=== PATIENT | female | born 1935 | race Caucasian/White ===

== ENCOUNTER → 2016-06-27 | Outpatient (CLI) | payer OTHER | LOC: RAD 13:42 | DX: J18.9 Pneumonia, unspecified organism (principal); R06.00 Dyspnea, unspecified; J81.1 Chronic pulmonary edema; J98.4 Other disorders of lung ==

== ENCOUNTER 2016-07-24 15:51 | Inpatient (IN) | payer OTHER ==
[~2016-07-24] VITALS: Ht 167.6 cm; Wt 68.3 kg
--- NOTE | ~2016-07-24 | EKG ---
[address] [address] ELECTROCARDIOGRAM REPORT Name: [place], [place] Room #: 215-P ADM IN M.R.#: [id number] Admission: 07/24/16 Attend Phys: Mary Jones MD Discharge: Date of : 35 Report #: [id number] THIS REPORT FOR: //name// [facility] ED Test Date: 2016-07-24 Test Time: 16:53:22 Pat Name: [facility] Department: Room: 215 Gender: F [employer] Service Man: mara : 1935 Requested By: Luc Pitt Order Number: [id number] MD: Robi Mccauley Measurements Intervals [place] Rate: 73 P: 64 MN: 138 QRS: 0 QRSD: 88 T: 44 QT: 467 QTc: 515 Interpretive Statements Sinus rhythm Nonspecific ST and T wave abnormality Prolonged QT interval No previous ECG available for comparison Electronically Signed On 07-25-2016 9:22:47 CDT by Robi Mccauley [email or web address] <ELECTRONICALLY SIGNED> By: Robi Mccauley MD, [facility] 07/25/16 0922 1653 1653 Robi Mccauley MD, FACC /EPI
--- NOTE | ~2016-07-24 | 2DMMODE ---
[facility] [address] [place] [address] 2 D/M-MODE ECHOCARDIOGRAM Name: [place] Room #: 215-P ADM IN M.R.#: [id number] Admission: 07/24/16 Attend Phys: Mary Jones Discharge: Date of : 35 Date of Service: 07/25/16 1428 Report #: [id number] THIS REPORT FOR: //name// ADDENDUM APPROVED REPORT Study performed: 07/25/2016 09:57:04 EXAM: Comprehensive 2D, Doppler, and color-flow Echocardiogram Patient Location: Echo lab Room #: 215 Blood Pressure: 125/65 mmHg HR: 89 bpm Other Information Study Quality: Good Indications Congestive Heart Failure Dyspnea Hypertension/HDD Echo Enhancing Agent Indication: Rule out Shunt Agent/Amount Used: Agitated Saline 7 cc 2D Dimensions RVDd: 45.23 mm LVEF(%): 59.07 (>50%) IVSd: 9.51 (7-11mm) LVOT Diam: 20.06 (18-24mm) LVDd: 44.94 mm PWd: 9.75 (7-11mm) Ascending Aorta: 28.12 mm LVDs: 30.93 (25-40mm) IVC: 22.00 mm Aortic Root: 27.73 mm Nunez's LVEF: 59.07 % Volumes Left Atrial Volume (Systole) Single Plane 4CH: 53.44 mL Single Plane 2CH: 49.02 mL LA ESV Index: 30.00 mL/m2 Aortic Valve AoV Peak Wander.: 2.06 m/s AO Peak Gr.: 16.93 mmHg LV Max P.69 mmHg LV Max: 1.08 m/s [facility] [address] [place] [address] 2 D/M-MODE ECHOCARDIOGRAM Name: [place], [place] Room #: [address] [place] [address] IN ..#: [id number] Admission: 07/24/16 Attend Phys: Mary Jones Discharge: Date of : 35 Date of Service: 07/25/16 1428 Report #: [id number] Mitral Valve E/A Ratio: 0.8 MV Decel. Time: 215.10 ms MV E Max Wander.: 0.83 m/s MV A Wander.: 1.04 m/s MV PHT: 62.38 ms Pulmonary Valve PV Peak Wandre.: 0.97 m/s PV Peak Gr.: 3.78 mmHg Pulmonary Vein P Vein S: 39.0 m/s P Vein D: 24.8 m/s P Vein A Dur.: 28.2 m/s PVa Duration: 111 Tricuspid Valve TR Peak Wander.: 4.25 m/s RAP Estimate: 10.00 mmHg TR Peak Gr.: 72.35 mmHg Left Ventricle The left ventricle is normal size. There is normal LV segmental wall motion. There is normal left ventricular wall thickness. The left ventricular systolic function is normal. The left ventricular ejection fraction is within the normal range. LVEF 60%. Grade I - abnormal relaxation pattern. Right Ventricle Right ventricle is dilated. The right ventricular systolic function is normal. Atria The left atrium is upper limits of normal size. Right atrium is dilated. Aortic Valve Aortic valve is mildly calcified. Trace aortic regurgitation. There is no aortic valvular stenosis. Mitral Valve Mild mitral annular calcification Mild mitral regurgitation. No evidence of mitral valve stenosis. There is mild mitral valve prolapse. Tricuspid Valve The tricuspid valve is normal in structure. There is moderate to [facility] [address] [place] [address] 2 D/M-MODE ECHOCARDIOGRAM Name: [place], [place] Room #: 215-P ADM IN M.R.#: [id number] Admission: 07/24/16 Attend Phys: Mary Jones Discharge: Date of : 35 Date of Service: 07/25/16 1428 Report #: [id number] severe tricuspid regurgitation. The right atrial pressure is estimated at 10 mmHg. There is severe pulmonary hypertension. Great Vessels The aortic root is normal in size. IVC is dilated and collapses >50% with inspiration. Pericardium There is no pericardial effusion. <Conclusion> The left ventricular systolic function is normal. There is normal LV segmental wall motion. LVEF 60%. Grade I diastolic dysfunction. Right ventricle is dilated. Right atrium is dilated. Aortic valve is mildly calcified. Trace aortic regurgitation, no stenosis. Mild mitral annular calcification. Mild mitral regurgitation. There is severe pulmonary hypertension. Pulmonary artery pressure of 70mmHg There is no pericardial effusion. No shunting by contrast bubble injection <ELECTRONICALLY SIGNED> By: Robi Mccauley MD, FACC 07/25/16 1428 1428 1428 Robi Mccauley MD, FACC /INF
--- NOTE | ~2016-07-24 | HC ---
[facility] [place] [address] [place] [address] CONSULTATION Name: [place], [place] Room #: 215-P [facility] IN M.R.#: [id number] Admission: 07/24/16 Attend Phys: Mary Jones MD Discharge: 07/27/16 Date of : 35 Report #: [id number] THIS REPORT FOR: //name// CC: JADON Jones DATE OF SERVICE: 07/25/2016 REASON FOR CONSULTATION: Exacerbation of obstructive lung disease. IMPRESSION: 1. Exacerbation of obstructive lung disease. 2. Right heart failure. 3. Pulmonary hypertension. 4. Coronary artery disease. 5. Hypertension. PLAN: Corticosteroids, antibiotics. ID will see as she has dental caries and have had antibiotics in the past. DVT and ulcer prophylaxis. May need further pulmonary hypertension evaluation; however, because of her severity of COPD, I feel this is the most likely cause and has had therapy in the past, which was not beneficial. HISTORY OF PRESENT ILLNESS: A very pleasant 80-year-old female comes in with progressive shortness of breath and inability to breath. No hemoptysis or hematemesis. MEDICATIONS: Include Coreg, lisinopril, sertraline, furosemide, Plavix, aspirin, pravastatin, Synthroid and Centrum silver. PAST MEDICAL HISTORY: Includes pulmonary hypertension, coronary artery disease, mitral valve prolapse, emphysema and SC. PAST SURGICAL HISTORY: . FAMILY HISTORY: Heart disease and hypertension. SOCIAL HISTORY: Positive tobacco for 50 years and quit greater than 1 year ago. REVIEW OF SYSTEMS: No fever, chills or night sweats. Positive shortness of breath, chest congestion and dyspnea at rest and with exertion. No dysuria. Positive back pain. PHYSICAL EXAMINATION: VITAL SIGNS: On exam, temperature 98.4, pulse 87, respirations 16 and BP 116/57. [facility] [address] [place] [address] CONSULTATION Name: [place], [place] Room #: 215-P [facility] IN M.R.#: [id number] Admission: 07/24/16 Attend Phys: Mary Jones MD Discharge: 07/27/16 Date of : 35 Report #: [id number] EYES: Negative icterus. NECK: Negative JVD. LUNGS: Showed decreased breath sounds, crackles and end-expiratory wheeze. HEART: Regular. EXTREMITIES: Showed no calf tenderness. NEUROLOGIC: Alert, oriented and follows. LABS AND X-RAYS: Reviewed. <ELECTRONICALLY SIGNED> By: Sharlene Tripp MD 07/30/16 0548 1646 0023 Sharlene Tripp MD /nt
--- NOTE | ~2016-07-24 | HC ---
[facility] [address] [place] [address] CONSULTATION Name: [place], [place] Room #: 215-P ADM IN M.R.#: [id number] Admission: 07/24/16 Attend Phys: Mary Jones MD Discharge: Date of : 35 Report #: [id number] THIS REPORT FOR: //name// CC: JADON Jones REASON FOR CONSULTATION: I was asked to evaluate concerning respiratory compromise and dental abscess. HISTORY OF PRESENT ILLNESS: The patient is an 80-year-old who presented to the Emergency Room with progressive shortness of breath. She has underlying pulmonary hypertension, COPD, coronary artery disease. She is typically on 4 liters of oxygen per nasal cannula. She does increase to 6 liters. Now on over 8 liters and still having issues with hypoxia. Minimal cough. No chest pain. Denied any previous nausea, vomiting or diarrhea. No recent travel, although she has moved here to the [place] within the last 6 months. Originally had been residing in [place]. Over the last several months, she has been dealing with dental abscesses. She is in the midst of further dental work. Several weeks ago oral antibiotics for such. Pain in her mouth has improved. She does have dental prostheses. Has had tuberculosis exposure to her and did receive preventative therapy many years ago. ALLERGIES: None known. MEDICATIONS: As noted on her MAR, now on Solu-Medrol. PAST MEDICAL HISTORY, FAMILY HISTORY AND SOCIAL HISTORY: Otherwise unchanged from her history and physical, which was reviewed. She is up to date on influenza vaccination and pneumococcal vaccine. She is a past smoker. REVIEW OF SYSTEMS: Negative other than what had been described above. PHYSICAL EXAMINATION: VITAL SIGNS: She is afebrile, hemodynamically stable. She was sitting up in her bed, eating her lunch. She is on 9 liters of oxygen per nasal cannula. GENERAL: She is alert and cooperative. She was in no distress. She had mild obesity. SKIN: Unremarkable. LYMPHATIC: Unremarkable. HEENT: Notable for several partial dentures. Had some mild tenderness to the left anterior mandibular teeth. There was no submandibular swelling or submental swelling. Jaw appeared to be intact. NECK: Supple. [facility] [address] [place] [address] CONSULTATION Name: [place], [place] Room #: 215-P ADM IN M.R.#: [id number] Admission: 07/24/16 Attend Phys: Mary Jones MD Discharge: Date of : 35 Report #: [id number] LUNGS: Crackles in the bases bilaterally. HEART: Regular, without murmur. ABDOMEN: Soft, nontender, no hepatosplenomegaly or mass. EXTREMITIES: No peripheral edema. LABORATORY STUDIES: Sodium 139, potassium 3.5, bicarbonate 25, creatinine 1.5. Liver function test normal. Hemoglobin 11, white count 7.3, platelet count 336,000. BNP 5023. V/Q scan low probability. Blood cultures are negative today. Chest x-ray showed some evidence of edema. IMPRESSION: An 80-year-old with exacerbation of chronic obstructive pulmonary disease, pulmonary hypertension, mild congestive heart failure with dental abscesses and chronic dental disease. PLAN: Would recommend continuing antibiotic coverage with Unasyn. Will check viral respiratory panel, urine antigens and obtain dental x-rays. <ELECTRONICALLY SIGNED> By: Bimal Galicia MD 07/26/16 1024 1349 07 Bimal Galicia MD /nt
--- NOTE | ~2016-07-24 | HC ---
[facility] [place] [address] CONSULTATION Name: [place], [place] Room #: 215-P ADM IN M.R.#: [id number] Admission: 07/24/16 Attend Phys: Mary Jones MD Discharge: Date of : 35 Report #: [id number] THIS REPORT FOR: //name// CC: JADON Jones CARDIOLOGY CONSULTATION REASON FOR CONSULTATION: Shortness of breath. HISTORY OF PRESENT ILLNESS: The patient is an 80-year-old female with a history of pulmonary hypertension, tobacco abuse, possible COPD as well as coronary artery disease, status post stents times 3. Apparently, she was seen at the doctor's office yesterday and her O2 saturations were in the 80s despite 4 liters of nasal cannula. She was brought to the emergency room for further evaluation. She denies any chest pain or chest tightness. She reports that she almost has yearly nuclear stress test. She also reports she has had about 4 cardiac catheterizations in the past. She denies any PND or orthopnea. She does have exertional dyspnea, which has worsened over the past 2-3 weeks. REVIEW OF SYSTEMS: GENERAL: No fevers or chills. HEENT: No sore throat. CARDIOVASCULAR: As above. PULMONARY: No productive cough. GASTROINTESTINAL: No nausea or vomiting. GENITOURINARY: No dysuria. MUSCULOSKELETAL: No myalgias or arthralgias. ENDOCRINE: No heat or cold intolerance. NEUROLOGIC: No weakness or stroke-like symptoms. PAST MEDICAL HISTORY: 1. Coronary artery disease, status post multiple stents. 2. Possible COPD. 3. Hypertension. 4. Pulmonary hypertension. SOCIAL HISTORY: She was a heavy smoker in the past. FAMILY HISTORY: Noncontributory. ALLERGIES: No known drug allergies. CURRENT MEDICATIONS: Include Synthroid, Lasix, Plavix, Coreg and omeprazole. PHYSICAL EXAMINATION: VITAL SIGNS: Temperature is 36.4, pulse 88, respiratory rate 18, blood pressure [facility] [address] [place] [address] CONSULTATION Name: [place], [place] Room #: 215 ADM IN M.R.#: [id number] Admission: 07/24/16 Attend Phys: Mary Jones MD Discharge: Date of : 35 Report #: [id number] 125/61 and sats are 91% on oxygen. GENERAL: On physical, in general, she is in no acute distress. HEENT: Oropharynx is clear. Sclerae are anicteric. NECK: Supple, with no thyromegaly. HEART: Regular rate and rhythm, with no murmurs, rubs or gallops. She does not have appreciable elevated JVD. LUNGS: Clear bilaterally. ABDOMEN: Soft, nontender and nondistended, with no hepatosplenomegaly. EXTREMITIES: There is no clubbing, cyanosis or edema. NEUROLOGIC: Cranial nerves 2-12 are intact. LABORATORY DATA: Her V/Q scan was low probability. Her EKG, I personally visualized, shows normal sinus rhythm with no ischemic changes. Her chest x-ray was read as possible pulmonary edema. White count 7.3, hemoglobin 11 and platelets 336,000. Blood gas, pH of 7.4, pCO2 of 34 and pO2 of 58. Coags: INR is 1.1. Chemistries: Sodium 139, potassium 3.5, BUN 17 and creatinine has increased from 1.2 up to 1.5. Her proBNP was 5023 and now it has increased to 6939. SUMMARY: In summary, the patient is an 80-year-old with a history of possible COPD, pulmonary hypertension as well as coronary artery disease, presenting with worsening shortness of breath. The etiology of this is not entirely clear. There may be a component of pulmonary involvement including her pulmonary hypertension. It is unclear if she has any LV dysfunction which may be systolic or diastolic in nature. To further evaluate this, I would like her to undergo an echocardiogram. We will make no medication changes at this time. Apparently, there have been some fluctuations in her blood pressure with some low readings in the past and her medications have been recently decreased in dose. We will make adjustments as necessary. We will continue to follow and if there is any significant LV dysfunction, we may consider inpatient nuclear stress testing. By: 1236 1410 Jeff Miranda MD /nt
--- NOTE | ~2016-07-24 | HC ---
[facility] [place] [place] [address] CONSULTATION Name: [place], [place] Room #: 215-P ADM IN M.R.#: [id number] Admission: 07/24/16 Attend Phys: Mary Jones MD Discharge: Date of : 35 Report #: [id number] THIS REPORT FOR: //name// CC: JADON Jones DATE OF SERVICE: 07/27/2016 DATE OF SERVICE: 07/27/2016 HISTORY OF PRESENT ILLNESS: The patient is an 80-year-old white female, who has a history of pulmonary hypertension, obstructive lung disease, typically on 4 liters nasal prong O2 at rest and 6 liters with activity. The patient had acute respiratory failure with hypoxemia thought to be multifactorial with pulmonary hypertension, right heart failure, exacerbation of obstructive lung disease as well as prior history of coronary artery disease and hypertension. She was given IV Lasix. Has moderate to severe tricuspid regurgitation. She has been monitored regarding acute renal insufficiency. V/Q scan was negative for pulmonary embolism. She also was noted to have a dental apical abscess and infectious disease has been involved. She is on IV Unasyn. She continues to need increased O2 with decreased activity tolerance and we are seeing her in rehabilitation medicine consultation. PAST MEDICAL HISTORY: Includes hypertension, hypothyroidism, pulmonary hypertension, hyperlipidemia, coronary artery disease, kidney stones, RI, cardiac stents x 3. PAST SURGICAL HISTORY: Includes thyroid goiter removed, cataracts, partial hysterectomy, cyst from the arm. MEDICATIONS: Please see the full medication listing. HABITS: Past history of tobacco abuse, 53-merc-sgxt history, quit greater than a year ago. Alcohol usage known. ALLERGIES: No known drug allergies. FAMILY HISTORY: Noncontributory. SOCIAL HISTORY: She lives in a house with her son, no steps, premorbidly ambulatory without gait aids, although she does have a scooter for long distances. She was premorbidly independent for basic ADLs. Her son does the laundry and the cooking. REVIEW OF SYSTEMS: Main complaint is decreased activity tolerance with increased shortness of breath. Did not offer any current complaints of chest [facility] [address] [place] [place] [address] CONSULTATION Name: [place], [place] Room #: 215-P ADM IN M.R.#: [id number] Admission: 07/24/16 Attend Phys: Mary Jones MD Discharge: Date of : 35 Report #: [id number] pain or abdominal discomfort. No focal extremity pain complaints. Did not offer any other specific complaints regarding other bodily systems. PHYSICAL EXAMINATION: GENERAL: An 80-year-old white female in no obvious distress. VITAL SIGNS: Last recorded temperature is 36.3, pulse 85, respirations 14, blood pressure 136/73. The patient is alert, pleasant. HEENT: Appeared to be benign. NEUROLOGIC: Cranial nerves are grossly intact. Facies are symmetric. She is a good historian. She has functional range of motion of both upper extremities, strength is grade 4-/5. DTRs are trace to 1. She is of slender built. EXTREMITIES: In her lower extremities, there is no focal calf swelling, functional range of motion with strength grade 3+ to 4-/5. DTRs are trace to 1. There is no significant distal lower extremity edema. Feet appear warm. Functionally, she is contact guard for sit to stand. She has in place, but has been on 9 liters and has been closely monitored regarding O2 saturation. Her sat did decreased to 72% with transferring to chair. ASSESSMENT: An 80-year-old white female with the following problem list: 1. Pulmonary rehabilitation. 2. Acute respiratory failure with hypoxemia, multifactorial. 3. Pulmonary hypertension. 4. Right-sided congestive heart failure. 5. Obstructive lung disease. 6. Coronary artery disease. 7. Hypertension. 8. Acute renal insufficiency. PLAN: The patient is a candidate for an acute in-hospital inpatient rehabilitation stay. She has had a significant functional decline from her premorbid status and has significant medical complexity issues. From a preadmission screening perspective: 1. Prior level of function as well delineated above. 2. Expect level of improvement would be for the patient to achieve functional status where she can again tolerate the basic activity level and have a decrease in her overall oxygen needs, so that she can return back to the home setting. Would anticipate length of stay of probably at least 7-14 days pending progress. 3. Evaluation of the patient's risk for clinical complications. She does have multiple medical comorbidities as noted above. 4. Condition that caused the need for rehabilitation would be the pulmonary rehabilitation. She has medical complexity with generalized debilitation. 5. Treatments needed would include PT and OT 1-1/2 hours per day each five days a week throughout the duration of the acute inpatient rehabilitation stay. 6. Anticipated discharge destination would be back to the home setting. [facility] [address] [place] [address] CONSULTATION Name: [place], [place] Room #: 215-P ADM IN M.R.#: [id number] Admission: 07/24/16 Attend Phys: Mary Jones MD Discharge: Date of : 35 Report #: [id number] 7. Would anticipate home healthcare therapies once the patient is ready for discharge. 8. The patient meets the diagnostic criteria for an acute in-hospital inpatient rehabilitation stay. She meets medical necessity criteria and Pulmonary Medicine is specifically requesting for her to be assessed for the acute inpatient rehabilitation salas. Pulmonary medicine would continue to follow along with her while she is on the rehab salas. She does have the tolerance for an acute rehabilitation level of care and has appropriate discharge goals back to the home setting. By: 1113 1310 Thiago Villatoro MD /nt
[2016-07-24 15:54] VITALS: BP 118/60
[2016-07-24] MEDS ORDERED: LEVOTHYROXIN0.075 MG PO (16:23)
[2016-07-24] MEDS ORDERED: PLAVIX 75 MG TA75 M1 PO (16:23)
[2016-07-24] MEDS ORDERED: LEVOTHYROXINE0.05 MG PO (16:23)
[2016-07-24] MEDS ORDERED: LASIX 40 MG TAB40 M2 PO (16:23)
[2016-07-24] MEDS ORDERED: KLOR-CON 1010 MEQ PO (16:23)
[2016-07-24] MEDS ORDERED: ZOLOFT50 MG PO (16:23)
[2016-07-24] MEDS ORDERED: OMEPRAZOLE 20 M20 M1 PO (16:24)
[2016-07-24] MEDS ORDERED: CARVEDILOL6.25 MG PO (16:24)
[2016-07-24] MEDS ORDERED: VITAMIN D1000 UNIT PO (16:25)
[2016-07-24 16:36] LABS: ABSOLUTE NEUTROPHILS 5.4 thou/uL (1.4-8.2); BASOPHILS 0.9 % (0.0-2.0); EOSINOPHILS 2.4 % (0.0-3.0); HEMATOCRIT 34.6 % (37.0-47.0); LYMPHOCYTES 17.1 % (24.0-44.0); MCH 27.9 pg (26.0-34.0); MCHC 31.8 g/dL (28.0-37.0); MCV 87.8 fL (80.0-100.0); MONOCYTES 5.9 % (1.0-8.0); PLATELET COUNT 336 thou/uL (150-400); POLYS 73.7 % (36.0-66.0); RBC 3.94 mil/uL (4.20-5.00); RDW 23.6 % (10.5-14.5); WBC 7.3 thou/uL (4.0-11.0)
[2016-07-24 16:41] LABS: INR 1.1
[2016-07-24 16:45] LABS: MANUAL DIFF NO
[2016-07-24 16:47] LABS: ANION GAP 10 mmol/L (7-16); BUN 13 mg/dL (7-18); CALCIUM 8.5 mg/dL (8.5-10.1); CHLORIDE 104 mmol/L (98-107); CO2 26 mmol/L (21-32); CREATININE 1.2 mg/dL (0.6-1.0); GLUCOSE 92 mg/dL (74-106); POTASSIUM 3.9 mmol/L (3.5-5.1); SODIUM 140 mmol/L (136-145)
[2016-07-24 16:50] LABS: ABG SAMPLE TYPE ARTERIAL; BE(vivo) 0.7 mmol/L (-2 to +3); HCO3 24.2 mmol/L (22.0-26.0); LACTATE 1.41 mmol/L (0.5-2.0); O2(CT) 13.9 mL/dL (15.0-23.0); O2Hb 88.1 % (92.0-98.0); PCO2 34.6 mmHg (35.0-45.0); pH 7.462 (7.360-7.450); sO2 91.8 % (92.0-98.0); tCO2 25.2 mmol/L (24.0-30.0)
[2016-07-24 16:51] LABS: ALBUMIN 3.2 g/dL (3.4-5.0); ALKALINE PHOSPHATASE 66 U/L (46-116); SGOT 27 U/L (15-37); SGPT 22 U/L (30-65); TOTAL BILIRUBIN 0.9 mg/dL (<0.1-1.0); TOTAL PROTEIN 6.7 g/dL (6.4-8.2); TROPONIN-I < 0.04 ng/mL (<0.04-0.07)
[2016-07-24 16:52] LABS: ABG COMMENT NO COMPLICATIONS.; STICK SITE R.RADIAL
[2016-07-24 17:50] LABS: ANISOCYTOSIS 3+
[2016-07-24 17:51] LABS: HYPOCHROMASIA SLIGHT; MACROCYTES 1+; MICROCYTES 1+; POLYCHROMASIA OCCASIONAL
[2016-07-24 19:26] VITALS: BP 132/59
[2016-07-24 20:35] VITALS: BP 114/60
[2016-07-24 23:50] VITALS: BP 117/63
[2016-07-25 03:45] VITALS: BP 119/59
[2016-07-25 03:54] LABS: CALCIUM 8.7 mg/dL (8.5-10.1); CREATININE 1.5 mg/dL (0.6-1.0); MAGNESIUM 1.9 mg/dL (1.8-2.4); POTASSIUM 3.5 mmol/L (3.5-5.1)
[2016-07-25 07:10] VITALS: BP 125/65
[2016-07-25 11:00] VITALS: BP 125/61
[2016-07-25 16:06] VITALS: BP 116/57
[2016-07-25 20:11] VITALS: BP 133/75
[2016-07-26] MEDS ORDERED: PROBIOTIC1 EAC1 PO (01:47)
[2016-07-26 03:01] VITALS: BP 126/69
[2016-07-26 04:08] LABS: HEMATOCRIT 37.4 % (37.0-47.0); HEMOGLOBIN 11.4 gm/dL (12.0-15.0); MCH 26.9 pg (26.0-34.0); MCHC 30.5 g/dL (28.0-37.0); MCV 88.2 fL (80.0-100.0); PLATELET COUNT 410 thou/uL (150-400); RBC 4.24 mil/uL (4.20-5.00); RDW 22.9 % (10.5-14.5); WBC 15.3 thou/uL (4.0-11.0)
[2016-07-26 04:14] LABS: MANUAL DIFF YES
[2016-07-26 04:19] LABS: CALCIUM 8.8 mg/dL (8.5-10.1); CREATININE 1.2 mg/dL (0.6-1.0); POTASSIUM 3.5 mmol/L (3.5-5.1)
[2016-07-26 05:52] LABS: ABG SAMPLE TYPE ARTERIAL; BE(vivo) -0.6 mmol/L (-2 to +3); HCO3 23.6 mmol/L (22.0-26.0); LACTATE 3.36 mmol/L (0.5-2.0); O2(CT) 15.8 mL/dL (15.0-23.0); O2Hb 92.6 % (92.0-98.0); PCO2 37.6 mmHg (35.0-45.0); pH 7.416 (7.360-7.450); sO2 94.6 % (92.0-98.0); tCO2 24.8 mmol/L (24.0-30.0)
[2016-07-26 05:53] LABS: STICK SITE L.RADIAL
[2016-07-26 06:46] LABS: ABSOLUTE NEUTROPHILS 14.7 thou/uL (1.4-8.2); ANISOCYTOSIS 3+; TOTAL CELL COUNT 100
[2016-07-26 06:48] LABS: POLYCHROMASIA 1+
[2016-07-26 06:49] LABS: MACROCYTES 2+; MICROCYTES 1+
[2016-07-26 07:45] VITALS: BP 135/75
[2016-07-26 11:25] VITALS: BP 120/68
[2016-07-26 16:40] VITALS: BP 122/74
[2016-07-26 20:10] VITALS: BP 121/74
[2016-07-27 03:39] LABS: HEMATOCRIT 37.2 % (37.0-47.0); HEMOGLOBIN 11.7 gm/dL (12.0-15.0); MCH 27.5 pg (26.0-34.0); MCHC 31.4 g/dL (28.0-37.0); MCV 87.6 fL (80.0-100.0); PLATELET COUNT 423 thou/uL (150-400); RBC 4.25 mil/uL (4.20-5.00); RDW 23.5 % (10.5-14.5); WBC 14.7 thou/uL (4.0-11.0)
[2016-07-27 03:45] LABS: MANUAL DIFF YES
[2016-07-27 03:55] LABS: CALCIUM 8.6 mg/dL (8.5-10.1); CREATININE 1.2 mg/dL (0.6-1.0); POTASSIUM 3.2 mmol/L (3.5-5.1)
[2016-07-27 04:16] VITALS: BP 135/80
[2016-07-27 05:27] LABS: ABSOLUTE NEUTROPHILS 13.8 thou/uL (1.4-8.2); TOTAL CELL COUNT 100
[2016-07-27 05:28] LABS: ANISOCYTOSIS 3+; MACROCYTES 2+; MICROCYTES 1+; POLYCHROMASIA 2+
[2016-07-27 05:30] LABS: OVALOCYTES 1+
[2016-07-27 05:42] LABS: HYPOCHROMASIA SLIGHT
[2016-07-27 08:19] VITALS: BP 136/73
[2016-07-27] MEDS ORDERED: ASPIR 8181 MG PO (16:12)
[2016-07-27] MEDS ORDERED: CARVEDILOL3.125 MG PO (16:12)
[2016-07-27] MEDS ORDERED: AUGMENTIN 875-1 EACH PO (16:12)
[2016-07-27] MEDS ORDERED: DUONEB 2.5-0.5 M3 ML INH (16:12)
[2016-07-27] MEDS ORDERED: PREDNISONE 10 M10 MG PO (16:13)
[2016-07-27 21:09] LABS: INFLUENZA B Negative (Negative); METAPNEUMOVIRUS Negative (Negative)
== END 2016-07-27 17:20 | DRG 871 ==
LOC: ER 15:51 → EROBS 19:09 → 2N 19:09
PROVIDERS: Internal Medicine Endocrinology, Diabetes & Metabolism; Internal Medicine Pulmonary Disease; Nurse Practitioner; Physician Assistant; Specialist
PROC: 5A09557 Assistance with Respiratory Ventilation, Greater than 96 Consecutive Hours, Continuous Positive Airway Pressure (ICD-10-PCS; principal; 2016-07-26)
DX: A41.9 Sepsis, unspecified organism (principal); J96.01 Acute respiratory failure with hypoxia; I26.99 Other pulmonary embolism without acute cor pulmonale; I50.31 Acute diastolic (congestive) heart failure; N17.9 Acute kidney failure, unspecified; I11.0 Hypertensive heart disease with heart failure; E03.9 Hypothyroidism, unspecified; I27.2 Other secondary pulmonary hypertension; E78.5 Hyperlipidemia, unspecified; I25.10 Atherosclerotic heart disease of native coronary artery without angina pectoris; K04.7 Periapical abscess without sinus; J43.9 Emphysema, unspecified; I07.1 Rheumatic tricuspid insufficiency; D72.829 Elevated white blood cell count, unspecified; I71.2 Thoracic aortic aneurysm, without rupture; Z87.442 Personal history of urinary calculi; I25.2 Old myocardial infarction; Z95.5 Presence of coronary angioplasty implant and graft; Z98.42 Cataract extraction status, left eye; Z98.41 Cataract extraction status, right eye; Z90.710 Acquired absence of both cervix and uterus; Z82.49 Family history of ischemic heart disease and other diseases of the circulatory system; Z80.9 Family history of malignant neoplasm, unspecified; Z82.3 Family history of stroke; Z87.891 Personal history of nicotine dependence
CPT/HCPCS: 10081

== ENCOUNTER 2016-07-27 13:42 | Inpatient (IN) | payer OTHER ==
[~2016-07-27] VITALS: Ht 167.6 cm; Wt 68.9 kg
--- NOTE | ~2016-07-27 | PLAN ---
[facility] [place] [address] REHAB UNIT PLAN OF CARE Name: [place], [place] Room #: 509-P DIS IN M.R.#: [id number] Admission: 07/27/16 Attend Phys: Thiago Villatoro MD Discharge: 08/07/16 Date of : 35 Report #: [id number] THIS REPORT FOR: //name// CC: Thiago Villatoro [facility] HISTORY OF PRESENT ILLNESS: The patient is seen back today in followup. She is in no distress. Last recorded temperature is 97.5, pulse 70, respirations 18, blood pressure 149/81. The patient is alert. She is pleasant. HEENT appeared to be benign. She is currently on 8 liters nasal prong O2. No focal calf swelling. Transfers are contact guard. She has ambulated up to 75 feet contact guard with a front-wheeled walker. In occupational therapy, lower body dressing is min assist, socks and hose are mod assist. ASSESSMENT: 1. Pulmonary rehabilitation. 2. Acute respiratory failure with hypoxemia, multifactorial. 3. Pulmonary hypertension. 4. Right-sided congestive heart failure. 5. Obstructive lung disease. 6. Coronary artery disease. 7. Hypertension. 8. Acute renal insufficiency. PLAN: The overall plan of care is based on the preadmission screen, post-admission physician evaluation and information garnered from therapy assessments. 1. Estimated length of stay is probably at least 10 days to 2 weeks and potentially longer as warranted. 2. Medical prognosis is reasonably good. 3. Anticipated interventions includes the interdisciplinary acute inpatient rehabilitation program with PT and OT, rehab nursing assisting regarding medication management, skin care prophylaxis, bowel and bladder issues and nursing education. Case management is involved as well as the sales representative consultant physicians that are following and the interdisciplinary acute inpatient rehabilitation team. 4. Anticipated functional outcomes would be for the patient to improve as far as transfers, mobility and ADLs and hopefully decrease her O2 needs to improve her endurance so she can return back to the home setting. 5. Discharge destination. Back to the home setting where she lives with her son. 6. Expected therapy by discipline includes PT and OT 1 and 1-1/2 hours per day each five days a week throughout the duration of the acute inpatient rehabilitation stay. [facility] [address] [place] [address] REHAB UNIT PLAN OF CARE Name: MAZON, [place]ORG[place] Room #: 509-P DIS IN M.R.#: [id number] Admission: 07/27/16 Attend Phys: Thiago Villatoro MD Discharge: 08/07/16 Date of : 35 Report #: [id number] The patient missed some therapies on Saturday07/28/2016 secondary to fatigue. <ELECTRONICALLY SIGNED> By: Thiago Villatoro MD 08/07/16 1523 0858 1013 Thiago Villatoro MD /nt
--- NOTE | ~2016-07-27 | HC ---
[facility] [place] [address] CONSULTATION Name: LUINDIANA Room #: 509-P ADM IN M.R.#: [id number] Admission: 07/27/16 Attend Phys: Thiago Villatoro MD Discharge: Date of : 35 Report #: [id number] THIS REPORT FOR: //name// CC: Thiago Villatoro [facility] DATE OF SERVICE: 07/29/2016 NEUROBEHAVIORAL STATUS EXAM ATTENDING PHYSICIAN: Thiago Villatoro M.D. ADVERTISING INSERTER: Teddy Rosales, PhD CLINICAL PRESENTATION: The patient is an 80-year-old female admitted to the rehabilitation unit at [facility] for comprehensive inpatient rehabilitation program to improve functional mobility, activities of daily living and self-care and mental status secondary to acute respiratory failure with hypoxemia. Her diagnoses on assessment included pulmonary rehabilitation, pulmonary hypertension, right side congestive heart failure, obstructive lung disease, coronary artery disease, hypertension and acute renal insufficiency. The patient is reported to have been living at home with her son when she developed severe shortness of breath and decreased mobility. She was unable to ambulate even for very short distances. Patient was brought into the emergency room and hospitalization was arranged. A complete description of her medical condition and history along with medications can be found in her medical record. Neuropsychological consultation was requested to provide assistance in the assessment of cognitive and emotional status and to provide recommendations and services. Prior to this most recent medical event, as indicated she was living with her son in their home. Assistance has been necessary for the management of instrumental activities of daily living. She has been independent with basic activities of daily living. 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 She has four children. Her two years ago. She is from a family with three sisters and two brothers. Two older sisters have been diagnosed with Alzheimer disease and a brother with Parkinsons disease. She had three sisters and two brothers. 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 She moved to [place] from [place] in 01/2016, in order to have assistance provided by her family. TECHNIQUES UTILIZED: Clinical interview, review of medical records, staff consultation and behavioral observation, mini mental status exam 2 standard [facility] [address] [address] CONSULTATION Name: MCCONNELL, GEORGIA Room #: 509-P ADM IN M.R.#: [id number] Admission: 07/27/16 Attend Phys: Thiago Villatoro MD Discharge: Date of : 35 Report #: [id number] version, clock drawing and verbal fluency assessment (category). EXAMINATION FINDINGS: The patient was alert and cooperative with the assessment. She accurately described events surrounding her hospitalization. She does not report auditory or visual hallucinations. There is no description of suicidal ideation. Her mood was pleasant and engaging. She denies subjective feelings of anxiety or depression. The patient does not report difficulty with memory or word finding. She primarily describes difficulty in sleep and appetite. Her performance on the MMSE 2 brief version was in the mild to moderate range of impairment with a raw score 12 of 16, which is a T score at 35 and percentile rank of 7. She was 3/3 for initial registration, 4/5 for orientation to time and 4/[address]. She was 1/3 correct for immediate recall after a brief time delay and distraction. Her performance on the MMSE 2 standard version was 21 of 30, which is a T score of 36 and percentile rank of 8. Mild impairment was suggested and sustained concentration and visual spatial organization. She was 3/5 for serial sevens, 2/2 for naming, 1/1 for repetition, 3/3 for comprehension. She was able to read and follow a single command and write a sentence. The patient was unable to copy a simple geometric design. Impaired visual spatial organization is suggested. The patient was able to draw a clock and place numbers. However, she was unable to set the hands at a designated time. Category fluency was in the borderline range with a raw score at 21 and a T score at 32, which is at the fourth percentile. Mild to moderate deficits in category fluency often indicate impairment in higher level planning, problem solving and thought organization. DIAGNOSTIC IMPRESSION: Mild neurocognitive disorder, unspecified, without behavior disorder. RECOMMENDATIONS: The patient will require increased supervision in order to maintain safety. She will benefit from assistance in the management of medication and nutrition. Encouragement to utilize compensatory strategies for memory, planning and problem solving. The use of a memory/organization notebook will be helpful. Her family is very supportive. Educational information for her family will be of benefit to assist in their understanding of her neurocognitive deficits and provide compensation and structure as needed. [address] [address] CONSULTATION Name: ALYNEW Room #: 509-P ADM IN M.R.#: [id number] Admission: 07/27/16 Attend Phys: Thiago Villatoro MD Discharge: Date of : 35 Report #: [id number] Thank you very much for allowing me to provide the consultation on this patient. <ELECTRONICALLY SIGNED> By: Teddy Rosales, PhD 08/04/16 1612 1609 52 Teddy Rosales, PhD /nt
--- NOTE | ~2016-07-27 | H ---
[facility] [place] [address] HISTORY AND PHYSICAL Name: GL[place]ILL[place], [place]GIA Room #: 509-P [facility] IN M.R.#: [id number] Admission: 07/27/16 Attend Phys: Thiago Villatoro MD Discharge: 08/07/16 Date of : 35 Report #: [id number] THIS REPORT FOR: //name// CC: Thiago Villatoro [facility] DATE OF SERVICE: 07/28/2016 DATE OF SERVICE: 07/28/2016 HISTORY OF PRESENT ILLNESS: This is an 80-year-old white female with a history of pulmonary hypertension, obstructive lung disease, typically on 4 liters nasal prong O2 at rest and 6 liters with activity. She was originally admitted to [facility] with acute respiratory failure with hypoxemia multifactorial with pulmonary hypertension, right heart failure, exacerbation of obstructive lung disease as well as a prior history of coronary artery disease, hypertension. She was given IV Lasix. She has moderate to severe tricuspid regurgitation. She has been monitored regarding acute renal insufficiency. V/Q scan was negative for pulmonary embolism. She was also noted to have dental apical abscess and infectious diseases has been involved. She has been on IV Unasyn. She has continued to need significant increased O2 with decreased activity tolerance and has now been admitted for acute inpatient rehabilitation. She is admitted for pulmonary rehabilitation and has medical complexity with generalized debilitation. PAST MEDICAL HISTORY: Includes hypertension, hypothyroidism, pulmonary hypertension, hyperlipidemia, coronary artery disease, kidney stones, ND, cardiac stents x 3. PAST SURGICAL HISTORY: Includes thyroid goiter removed, cataracts, partial hysterectomy, cysts from the arm. MEDICATIONS: Please see the full medication listing. Each of these medications was individually reconciled and also included [id number] supplements etc. HABITS: Past history of tobacco abuse, 62-[id number]-ulvl history, quit greater than a year ago. Alcohol usage unknown. ALLERGIES: No known drug allergies. FAMILY HISTORY: Noncontributory. SOCIAL HISTORY: Lives in a house with her son, no steps, premorbidly ambulatory without gait aids, although she does have a scooter for longer distances. She was premorbidly independent for basic ADLs. Her son does the laundry and cooking. [facility] [address] [place] [address] HISTORY AND PHYSICAL Name: GLEN MILLS, GEORGIA Room #: 509-P DIS IN M.R.#: [id number] Admission: 07/27/16 Attend Phys: Thiago Villatoro MD Discharge: 08/07/16 Date of : 35 Report #: [id number] REVIEW OF SYSTEMS: Main complaint has been the decreased activity tolerance with increased shortness of breath. Although sleepy this morning, but no specific complaints of chest pain, shortness of breath or abdominal discomfort. No other focal extremity pain complaints. PHYSICAL EXAMINATION: GENERAL: An 80-year-old white female in no obvious distress. The patient was seen earlier. VITAL SIGNS: Temp 36.4, pulse 85, respirations 20, blood pressure 134/77. She has been on 8 liters nasal prong O2. HEENT: Appeared to be benign. Cranial nerves are grossly intact. Facies are symmetric. CHEST: Decreased diffuse breath sounds. CARDIOVASCULAR: Regular rate and rhythm. ABDOMEN: Bowel sounds positive, nontender. GENITOURINARY AND RECTAL: Deferred. NEUROLOGIC: She has functional range of motion of both upper extremities with strength grade 4-/5. DTRs are trace to 1. In her lower extremities, no focal calf swelling, functional range of motion with strength grade 3+ to 4-/5. DTRs are trace to 1. No distal lower extremity edema. She has shortness of breath with limited activity that she has noted. She has indwelling Beltran catheter. ASSESSMENT: An 80-year-old white female with the following problem list: 1. Pulmonary rehabilitation. 2. Acute respiratory failure with hypoxemia multifactorial. 3. Pulmonary hypertension. 4. Right-sided congestive heart failure. 5. Obstructive lung disease. 6. Coronary artery disease. 7. Hypertension. 8. Acute renal insufficiency. PLAN: The patient is admitted for acute in-hospital inpatient rehabilitation. From a postadmission physician evaluation perspective, there are no relevant changes since the preadmission screening. Please see the above review of prior and current medical and functional conditions and comorbidities. Please see the patient's prior and current functional status. As far as risk of complications, the patient has multiple medical comorbidities as noted above. Initial plan of care involves the interdisciplinary acute inpatient rehabilitation program with the goal of maximizing the patient's functional independence, so that she can hopefully return back to her prior living situation. Measurable functional goals would be for her to improve as far as her gait, endurance and decreased in O2 needs with independent in mobility and ADLs. PROGNOSIS: Reasonably good. Would anticipate length of stay of probably at [address] [address] HISTORY AND PHYSICAL Name: GLEN MILLS, GEORGIA Room #: 509-P DIS IN M.R.#: [id number] Admission: 07/27/16 Attend Phys: Thiago Villatoro MD Discharge: 08/07/16 Date of : 35 Report #: [id number] least 10 days to 2 weeks and potentially longer if needed. Potential barriers would include her multiple medical comorbidities and decreased functional status. The patient meets diagnostic criteria for an acute in-hospital inpatient rehabilitation stay. She meets medical necessity criteria. We will have the pulmonary physicians involved as well as infectious disease, Internal Medicine and Cardiology. This level of care would not be available with an [place] [facility] facility environment. She will currently be getting her acute intradisciplinary rehabilitation therapies. She does have the appropriate tolerance for an acute inpatient rehabilitation stay. She has appropriate discharge goals back to the home setting. <ELECTRONICALLY SIGNED> By: Thiago Villatoro MD 08/07/16 1523 [id number] Thiago Villatoro MD /nt
[~2016-07-27 13:42] MED LIST: CARVEDILOL6.25 MG PO; KLOR-CON 1010 MEQ PO; LASIX 40 MG TAB40 M2 PO; LEVOTHYROXIN0.075 MG PO; LEVOTHYROXINE0.05 MG PO; OMEPRAZOLE 20 M20 M1 PO; PLAVIX 75 MG TA75 M1 PO; PROBIOTIC1 EAC1 PO; VITAMIN D1000 UNIT PO; ZOLOFT50 MG PO
[2016-07-27] MEDS ORDERED: CARVEDILOL3.125 MG PO (16:12)
[2016-07-27] MEDS ORDERED: ASPIR 8181 MG PO (16:12)
[2016-07-27] MEDS ORDERED: DUONEB 2.5-0.5 M3 ML INH (16:12)
[2016-07-27] MEDS ORDERED: AUGMENTIN 875-1 EACH PO (16:12)
[2016-07-27] MEDS ORDERED: PREDNISONE 10 M10 MG PO (16:13)
[2016-07-27 17:16] VITALS: BP 121/65
[2016-07-28 03:00] LABS: HEMATOCRIT 36.9 % (37.0-47.0); HEMOGLOBIN 11.6 gm/dL (12.0-15.0); MCH 27.5 pg (26.0-34.0); MCHC 31.5 g/dL (28.0-37.0); MCV 87.5 fL (80.0-100.0); RBC 4.22 mil/uL (4.20-5.00); RDW 23.7 % (10.5-14.5); WBC 10.2 thou/uL (4.0-11.0)
[2016-07-28 03:08] LABS: CALCIUM 8.3 mg/dL (8.5-10.1); CREATININE 1.1 mg/dL (0.6-1.0); POTASSIUM 3.6 mmol/L (3.5-5.1)
[2016-07-28 04:21] VITALS: BP 137/72
[2016-07-28 16:00] VITALS: BP 95/72
[2016-07-29 05:10] LABS: CALCIUM 8.6 mg/dL (8.5-10.1); CREATININE 1.1 mg/dL (0.6-1.0); MAGNESIUM 2.9 mg/dL (1.8-2.4); POTASSIUM 4.1 mmol/L (3.5-5.1)
[2016-07-29 05:46] VITALS: BP 122/60
[2016-07-29 16:15] VITALS: BP 131/77
[2016-07-30 03:41] VITALS: BP 149/81
[2016-07-30 16:00] VITALS: BP 117/57; BP 124/78
[2016-07-31 04:44] LABS: ALBUMIN 3.1 g/dL (3.4-5.0); CALCIUM 8.5 mg/dL (8.5-10.1); CREATININE 1.1 mg/dL (0.6-1.0); MAGNESIUM 2.4 mg/dL (1.8-2.4); POTASSIUM 4.6 mmol/L (3.5-5.1); TOTAL BILIRUBIN 0.5 mg/dL (<0.1-1.0); TOTAL PROTEIN 6.1 g/dL (6.4-8.2)
[2016-07-31 04:46] LABS: HEMATOCRIT 36.8 % (37.0-47.0); HEMOGLOBIN 11.5 gm/dL (12.0-15.0); MCH 27.4 pg (26.0-34.0); MCHC 31.3 g/dL (28.0-37.0); MCV 87.5 fL (80.0-100.0); PLATELET COUNT 387 thou/uL (150-400); RBC 4.21 mil/uL (4.20-5.00); RDW 22.5 % (10.5-14.5); WBC 11.6 thou/uL (4.0-11.0)
[2016-07-31 04:56] LABS: MANUAL DIFF YES
[2016-07-31 05:09] VITALS: BP 142/77
[2016-07-31 06:46] VITALS: BP 152/83
[2016-07-31 08:17] LABS: ABSOLUTE NEUTROPHILS 10.2 thou/uL (1.4-8.2); ANISOCYTOSIS 1+; HYPOCHROMASIA SLIGHT; METAMYELOCYTES 1 %; MICROCYTES SLIGHT; NUCLEATED RBCS 1 /100WBC; OVALOCYTES 1+; POIKILOCYTOSIS 1+; TOTAL CELL COUNT 100
[2016-07-31 16:00] VITALS: BP 130/74
[2016-08-01 04:21] VITALS: BP 149/81
[2016-08-01 08:14] VITALS: BP 152/83
[2016-08-01 16:00] VITALS: BP 114/60
[2016-08-02 05:25] VITALS: BP 141/73
[2016-08-02 06:22] LABS: CALCIUM 8.3 mg/dL (8.5-10.1); CREATININE 0.9 mg/dL (0.6-1.0); MAGNESIUM 2.3 mg/dL (1.8-2.4); POTASSIUM 5.2 mmol/L (3.5-5.1)
[2016-08-02 16:00] VITALS: BP 125/65
[2016-08-03 06:24] VITALS: BP 150/77
[2016-08-03 07:48] LABS: MAGNESIUM 2.3 mg/dL (1.8-2.4); POTASSIUM 4.7 mmol/L (3.5-5.1)
[2016-08-03 16:10] VITALS: BP 125/81
[2016-08-04 06:14] VITALS: BP 142/67
[2016-08-04 15:48] VITALS: BP 122/69
[2016-08-05 06:14] VITALS: BP 131/67
[2016-08-05 16:15] VITALS: BP 112/70
[2016-08-06 03:27] VITALS: BP 126/66
[2016-08-06 08:17] VITALS: BP 112/62
[2016-08-06] MEDS ORDERED: CARVEDILOL3.125 MG PO (11:58)
[2016-08-06] MEDS ORDERED: MELATONIN5 M1 PO (11:58)
[2016-08-06] MEDS ORDERED: NYSTATIN 1100000 U/M SWISH&SPIT (11:58)
[2016-08-06] MEDS ORDERED: PLAVIX 75 MG TA75 M1 PO (11:58)
[2016-08-06] MEDS ORDERED: ZOLOFT50 MG PO (11:58)
[2016-08-06] MEDS ORDERED: PULMICORT0.5 MG/21 INH (11:58)
[2016-08-06] MEDS ORDERED: DUONEB 2.5-0.5 M3 ML INH (11:58)
[2016-08-06 15:48] VITALS: BP 112/62
[2016-08-06 15:55] VITALS: BP 131/74
[2016-08-06] MEDS ORDERED: PREDNISONE 10 M10 M1 PO (16:58)
[2016-08-06 18:30] VITALS: BP 112/62
[2016-08-07 04:50] LABS: HEMATOCRIT 38.6 % (37.0-47.0); MCH 27.3 pg (26.0-34.0); MCV 88.1 fL (80.0-100.0); PLATELET COUNT 336 thou/uL (150-400); RBC 4.38 mil/uL (4.20-5.00); RDW 22.5 % (10.5-14.5); WBC 18.2 thou/uL (4.0-11.0)
[2016-08-07 04:57] LABS: MANUAL DIFF YES
[2016-08-07 05:04] LABS: CALCIUM 8.7 mg/dL (8.5-10.1); MAGNESIUM 2.2 mg/dL (1.8-2.4); POTASSIUM 4.2 mmol/L (3.5-5.1)
[2016-08-07 05:35] VITALS: BP 135/79
[2016-08-07 07:45] VITALS: BP 141/78
[2016-08-07 08:41] LABS: ABSOLUTE NEUTROPHILS 16.2 thou/uL (1.4-8.2); MYELOCYTES 1 %; TOTAL CELL COUNT 100
[2016-08-07 08:42] LABS: ANISOCYTOSIS 1+
[2016-08-07 09:20] VITALS: BP 112/62
== END 2016-08-07 14:27 | disposition home health service (06) | DRG 190 ==
PROVIDERS: Internal Medicine Pulmonary Disease; Nurse Practitioner
PROC: 5A09557 Assistance with Respiratory Ventilation, Greater than 96 Consecutive Hours, Continuous Positive Airway Pressure (ICD-10-PCS; principal; 2016-07-27)
DX: J44.1 Chronic obstructive pulmonary disease with (acute) exacerbation (principal); J96.01 Acute respiratory failure with hypoxia; I50.33 Acute on chronic diastolic (congestive) heart failure; I13.0 Hypertensive heart and chronic kidney disease with heart failure and stage 1 through stage 4 chronic kidney disease, or unspecified chronic kidney disease; N17.9 Acute kidney failure, unspecified; R53.81 Other malaise; I27.2 Other secondary pulmonary hypertension; I25.10 Atherosclerotic heart disease of native coronary artery without angina pectoris; N18.9 Chronic kidney disease, unspecified; G31.84 Mild cognitive impairment of uncertain or unknown etiology; E03.9 Hypothyroidism, unspecified; E78.5 Hyperlipidemia, unspecified; K04.7 Periapical abscess without sinus; K59.00 Constipation, unspecified; E87.5 Hyperkalemia; I27.81 Cor pulmonale (chronic); I25.2 Old myocardial infarction; Z95.5 Presence of coronary angioplasty implant and graft; Z87.891 Personal history of nicotine dependence
CPT/HCPCS: 10112

== ENCOUNTER 2016-08-21 12:42 | Inpatient (IN) | payer OTHER ==
[~2016-08-21] VITALS: Ht 165.1 cm; Wt 78.0 kg
[2016-08-21] VITALS (8 sets, daily range): BP systolic 67–126; BP diastolic 39–109
--- NOTE | ~2016-08-21 | H ---
[facility] [place] [address] HISTORY AND PHYSICAL Name: BRICELYN, GEORGIA Room #: 236-P [facility] IN M.R.#: [id number] Admission: 08/21/16 Attend Phys: Adilia Babb MD Discharge: 08/21/16 Date of : 35 Report #: [id number] THIS REPORT FOR: //name// CC: REUBEN unknown Adilia Babb PRIMARY DOCTOR: Unknown. CHIEF COMPLAINT: Shortness of breath. HISTORY OF PRESENT ILLNESS: The patient is an 80-year-old female with a history of COPD, right heart failure, pulmonary hypertension, coronary artery disease, presented to the ER secondary to shortness of breath. Most of the information was obtained from her son who she lives with. The patient generally wears 4-6 liters of O2 at home. She was hospitalized here in mid July for COPD exacerbation. She subsequently went to [address] [place] [address] and then home with her son. This morning, she woke up with a fever and chills, cough and worsening shortness of breath. In the ER, she was found to be very hypoxic with sats in the 40s and 50s. She was placed on 100% FIO2 and is barely holding her saturations at this time. Chest x-ray shows new right lower lobe pneumonia and lactic acid is 5.1. Family members do not want her to be intubated, but want aggressive measures otherwise including IV fluids, antibiotics, sepsis protocol, and pressure support. She has been seen by Dr. Tripp in the ER already. PAST MEDICAL HISTORY: Chronic respiratory failure on 4-6 liters of home O2, COPD, prior tobacco abuse, she quit more than a decade ago; coronary artery disease with prior stents and MN, pulmonary hypertension, hypertension, right heart failure, and nephrolithiasis. She has had a thyroid goiter removed and cataracts. PAST SURGICAL HISTORY: She has had stents times 3, thyroid goiter removed, cataract surgery, partial hysterectomy, and a cyst from her arm removed. REVIEW OF SYSTEMS: A 14-point review of system was conducted, all negative except for above. SOCIAL HISTORY: She quit smoking more than a decade ago, lives with her son, does not drink. FAMILY HISTORY: Positive for heart disease, cancer, and stroke. CURRENT MEDICATIONS: Include prednisone taper, aspirin 81 daily, Pulmicort b.i.d., melatonin 10 daily, Plavix 75 daily, Coreg 3.125 b.i.d., DuoNebs, Zoloft 50 daily, Synthroid 75 mcg daily, Lasix 40 daily, omeprazole 20 daily, probiotic 1 daily, and vitamin D 1000 units daily. PHYSICAL EXAMINATION: [address] [address] HISTORY AND PHYSICAL Name: BRICELYN, GEORGIA Room #: 236-[facility] IN M.R.#: [id number] Admission: 08/21/16 Attend Phys: Adilia Babb MD Discharge: 08/21/16 Date of : 35 Report #: [id number] VITAL SIGNS: Pulse 123, blood pressure 88/50, and O2 sats 48% on 100% FiO2. GENERAL: She is awake, is responsive by nodding her head, currently denies any significant complaints. HEENT: Normocephalic and atraumatic. Pupils equal. NECK: Supple. CARDIOVASCULAR: Regular rate and rhythm. No murmurs. LUNGS: Audible breath sounds bilaterally. Coarse rhonchi, decreased at the bases. ABDOMEN: Soft, no distention or tenderness. EXTREMITIES: No edema. NEUROLOGIC: Nonfocal. LABORATORY AND TESTING: Lactate acid was 5.1. Chest x-ray showed right lower lobe pneumonia, questionable left lower lung infiltrate and atelectasis. Sodium 141, potassium 4.3, BUN and creatinine ____ and 1.1, CO2 of 28 and troponin 0.12. White count of 18, H and H of 14 and 45, platelets 330. The pH of 7.38, pCO2 of 43, pO2 of 41, lactic acid 3.02, O2 sat 72%, this is on FiO2 of 100% on BiPAP. INR of 1. UA negative. EKG, sinus tachycardia with a rate of 124. ASSESSMENT AND PLAN: 1. Healthcare-associated pneumonia with severe sepsis. We will put her on triple antibiotics therapy, sepsis protocol, ICU monitoring. The patient and family do not want to be intubated, but want aggressive measures, otherwise. We will keep her n.p.o. for now as she is in respiratory failure. 2. Acute hypoxic respiratory failure secondary to above again. Aggressive pulmonary toiletry, pulmonary is following, continue BiPAP as tolerated. She is a do not intubate. Because of respiratory distress, we will keep her n.p.o. for now. We will need to resume any pertinent oral medications when she is able to take p.o. 3. Chronic obstructive pulmonary disease exacerbation. Continue steroids and DuoNebs. 4. Coronary artery disease, prior myocardial infarction and stents. We will hold her beta radha, continue aspirin. 5. Surgical hypothyroidism. Resume her Synthroid when able to. 6. History of pulmonary hypertension. Hold her diuretics for now. 7. History of hypertension. She is currently hypotensive and septic. We will hold her Coreg. 8. Deep venous thrombosis prophylaxis with Lovenox. By: 1450 1644 Adilia Babb MD /nt
--- NOTE | ~2016-08-21 | DEA ---
[facility] [address] SUMMARY Name: [place], [place] Room #: 236-[facility] IN M.R.#: [id number] Admission: 08/21/16 Attend Phys: Adilia Babb MD Discharge: 08/21/16 Date of : 35 Report #: [id number] THIS REPORT FOR: //name// CC: FAM unknown Adilia Babb DATE OF SERVICE: 08/21/2016 DATE OF ADMISSION: 08/21/2016. DATE OF : 08/21/2016. DIAGNOSES: 1. Iospu-tr-gypbivv respiratory failure. 2. Healthcare-associated pneumonia with severe sepsis. 3. Chronic obstructive pulmonary disease exacerbation. 4. Coronary artery disease with prior myocardial infarction. 5. Surgical hypothyroidism. 6. Pulmonary hypertension. 7. History of hypertension. CONSULTS: Pulmonary. PROCEDURES: None. HOSPITAL COURSE: The patient is an 80-year-old female with a history of COPD, coronary artery disease, right heart failure and pulmonary hypertension, who presented to the ER secondary to shortness of breath. Please see details of admission dictated by myself on 08/21/2016. The patient generally wears 4-6 liters of home O2. She was hospitalized at our facility in mid July for COPD exacerbation and subsequently went to rehab and then home. She came back into the ER with worsening shortness of breath and hypoxia. Pulmonary was consulted. She was also felt to have pneumonia. She was started on broad spectrum antibiotics and sepsis protocol. She elected to be DNR. Shortly after admission, she . By: 0741 [id number] Adilia Babb MD /nt
--- NOTE | ~2016-08-21 | EKG ---
[place] [address] [facility] [place] [address] ELECTROCARDIOGRAM REPORT Name: [place], [place] Room #: 236-P [facility] IN M.R.#: [id number] Admission: 08/21/16 Attend Phys: Adilia Babb MD Discharge: 08/21/16 Date of : 35 Report #: [id number] THIS REPORT FOR: //name// [facility] ED Test Date: 2016-08-21 Test Time: 12:52:01 Pat Name: [facility] [place] Department: Room: [facility] Gender: F Anthropometrist: MZOOK : 1935 Requested By: Yehuda Hurley Order Number: [id number] MD: Robi Mccauley Measurements Intervals [place] Rate: 124 P: 109 MO: 91 QRS: -81 QRSD: 88 T: 70 QT: 301 QTc: 433 Interpretive Statements Sinus tachycardia Nonspecific ST and T-wave abnormality Compared to ECG 07/24/2016 16:53:22 Ventricular premature complex(es) now present Nonspecific change in the ST and T-wave segments Electronically Signed On 08-22-2016 6:54:50 CDT by Robi Mccauley [email or web address] <ELECTRONICALLY SIGNED> By: Robi Mccauley MD, FACC 08/22/16 0654 1252 1252 Robi Mccauley MD, [facility] /EPI
[~2016-08-21 12:42] MED LIST changes: +ASPIR 8181 MG PO; +AUGMENTIN 875-1 EACH PO; +CARVEDILOL3.125 MG PO; +DUONEB 2.5-0.5 M3 ML INH; +MELATONIN5 M1 PO; +NYSTATIN 1100000 U/M SWISH&SPIT; +PREDNISONE 10 M10 M1 PO; +PREDNISONE 10 M10 MG PO; +PULMICORT0.5 MG/21 INH
[2016-08-21 13:06] LABS: URINE BILIRUBIN NEGATIVE (Negative); URINE BLOOD TRACE (Negative); URINE COLOR YELLOW; URINE GLUCOSE-RANDOM* TRACE (Negative); URINE KETONES NEGATIVE (Negative); URINE NITRITE NEGATIVE (Negative); URINE PROTEIN (DIPSTICK) TRACE (Negative)
[2016-08-21 13:08] LABS: BASOPHILS 0.4 % (0.0-2.0); EOSINOPHILS 0.1 % (0.0-3.0); MONOCYTES 0.7 % (1.0-8.0)
[2016-08-21 13:10] LABS: ABSOLUTE NEUTROPHILS 17.5 thou/uL (1.4-8.2); HEMATOCRIT 45.9 % (37.0-47.0); HEMOGLOBIN 14.1 gm/dL (12.0-15.0); LYMPHOCYTES 3.8 % (24.0-44.0); MCH 28.5 pg (26.0-34.0); MCHC 30.7 g/dL (28.0-37.0); MCV 92.6 fL (80.0-100.0); PLATELET COUNT 330 thou/uL (150-400); RBC 4.95 mil/uL (4.20-5.00); RDW 25.9 % (10.5-14.5); WBC 18.4 thou/uL (4.0-11.0)
[2016-08-21 13:13] LABS: MANUAL DIFF NO
[2016-08-21 13:17] LABS: ABG SAMPLE TYPE ARTERIAL; BE(vivo) -0.1 mmol/L (-2 to +3); HCO3 25.2 mmol/L (22.0-26.0); LACTATE 3.02 mmol/L (0.5-2.0); O2(CT) 14.2 mL/dL (15.0-23.0); PCO2 43.4 mmHg (35.0-45.0); pH 7.382 (7.360-7.450); sO2 76.4 % (92.0-98.0); tCO2 26.5 mmol/L (24.0-30.0)
[2016-08-21 13:18] LABS: PROTIME 10.4 Seconds (9.3-11.4)
[2016-08-21 13:18] LABS: O2Hb 72.5 % (92.0-98.0); PO2 41.8 mmHg (80.0-100.0)
[2016-08-21 13:20] LABS: STICK SITE R.RADIAL
[2016-08-21 13:21] LABS: Pressure Support 12 cm H20
[2016-08-21 13:22] LABS: POC CA IONIZED 4.5 mg/dL (4.5-5.3); POC HEMOGLOBIN 16.3 g/dL (12.0-15.0); POC POTASSIUM 4.1 mmol/L (3.5-5.1)
[2016-08-21 13:32] LABS: ANISOCYTOSIS 2+; PLATELET ESTIMATE NORMAL; POLYCHROMASIA SLIGHT
[2016-08-21 13:38] LABS: CALCIUM 8.6 mg/dL (8.5-10.1); CREATININE 1.1 mg/dL (0.6-1.0); POTASSIUM 4.3 mmol/L (3.5-5.1)
[2016-08-21 13:45] LABS: TROPONIN-I 0.12 ng/mL (<0.04-0.07)
== END 2016-08-21 18:00 | DRG 871 ==
LOC: ER 12:42 → EROBS 14:25 → ICU 15:12
PROVIDERS: Emergency Medicine
PROC: 02HV33Z Insertion of Infusion Device into Superior Vena Cava, Percutaneous Approach (ICD-10-PCS; principal; 2016-08-21)
DX: A41.9 Sepsis, unspecified organism (principal); J96.21 Acute and chronic respiratory failure with hypoxia; J18.9 Pneumonia, unspecified organism; J44.1 Chronic obstructive pulmonary disease with (acute) exacerbation; J44.0 Chronic obstructive pulmonary disease with (acute) lower respiratory infection; I27.2 Other secondary pulmonary hypertension; I11.0 Hypertensive heart disease with heart failure; I50.9 Heart failure, unspecified; E78.5 Hyperlipidemia, unspecified; I25.10 Atherosclerotic heart disease of native coronary artery without angina pectoris; B02.9 Zoster without complications; R65.20 Severe sepsis without septic shock; Z66 Do not resuscitate; E03.9 Hypothyroidism, unspecified; Z79.82 Long term (current) use of aspirin; Z79.899 Other long term (current) drug therapy; Z87.442 Personal history of urinary calculi; I25.2 Old myocardial infarction; Z95.5 Presence of coronary angioplasty implant and graft; Z98.49 Cataract extraction status, unspecified eye; Z90.711 Acquired absence of uterus with remaining cervical stump; Z87.891 Personal history of nicotine dependence; Z82.49 Family history of ischemic heart disease and other diseases of the circulatory system; Z82.3 Family history of stroke; Z80.9 Family history of malignant neoplasm, unspecified
CPT/HCPCS: 10078; 27000